=== PATIENT | male | born 1955 | race Caucasian/White ===

== ENCOUNTER → 2023-08-09 07:20 | Outpatient (REF) | payer BC, SELFPAY | LOC: PAVMRI 07:20 | PROVIDERS: ATTENDING PHYSICIAN Anesthesiology; FAMILY PHYSICIAN Internal Medicine | DX: M54.16 Radiculopathy, lumbar region (principal) | CPT/HCPCS: 72148 ==

== ENCOUNTER → 2023-10-12 19:07 | Outpatient (REF) | payer BC, SELFPAY | LOC: MRI 3T 19:07 | PROVIDERS: ATTENDING PHYSICIAN Anesthesiology; FAMILY PHYSICIAN Internal Medicine | DX: M54.2 Cervicalgia (principal) | CPT/HCPCS: 72141 ==

== ENCOUNTER → 2024-11-26 06:28 | Outpatient (REF) | payer MEDICARE, OTHER, SELFPAY | LOC: RAD 06:28 | PROVIDERS: ATTENDING PHYSICIAN Internal Medicine | DX: G45.3 Amaurosis fugax (principal); R09.89 Other specified symptoms and signs involving the circulatory and respiratory systems | CPT/HCPCS: 93880 ==

== ENCOUNTER → 2024-12-22 07:17 | Outpatient (REF) | payer MEDICARE, OTHER, SELFPAY | LOC: MRI 07:17 | PROVIDERS: ATTENDING PHYSICIAN Internal Medicine | DX: G45.3 Amaurosis fugax (principal); R09.89 Other specified symptoms and signs involving the circulatory and respiratory systems; R51.9 Headache, unspecified; E85.9 Amyloidosis, unspecified | CPT/HCPCS: 70551 ==